=== PATIENT | male | born 1950 | race Caucasian/White ===

== ENCOUNTER 2017-07-28 07:59 | Outpatient (CLI) | payer MEDICARE, OTHER ==
[~2017-07-28] VITALS: Ht 180.3 cm; Wt 91.8 kg
--- NOTE | ~2017-07-28 | OP ---
PATIENT NAME: ANGELIC COULTER MEDICAL RECORD: [id number] :52 LOCATION:D.CAT ADMISSION DATE: SURGEON: LEN LEBRON MD DATE OF OPERATION: 07/28/2017 Addendum Intravascular ultrasound was performed of the LAD. No flow-limiting stenosis was present. TRANSINT:[id number] Voice Confirmation ID: [id number] DOCUMENT ID: [id number] LEN LEBRON MD at 0847 CC: [id number] DICTATION DATE: 08/31/17 1237 COOK ROOM SUPERVISOR: 08/31/17 1242 DEP CLI 07/28/17 [place] [id number] [place] [id number]
--- NOTE | ~2017-07-28 | HEMODYNAMI ---
PATIENT:ANGELIC COULTER MEDICAL RECORD: [id number] : 52 LOCATION:[facility] ADMISSION DATE: 07/28/17 Generatedon:07/28/201711:44 Patient name: ANGELIC COULTER Patient #: [id number] : 1950 Date of study: 07/28/2017 Page: Of Hemodynamic Procedure Report Patient Data Patient Demographics Procedure consent was obtained First Name: ANGELIC Gender: Male Last Name: FYN : 1950 [facility] Initial: TRESSA Age: 67 year(s) Patient #: [id number] Race: SSN: [id number] Additional ID: [id number] Contact details [address]: [address] [place] [address] State: [place] City: [place] Zip code: [address] Past Medical History Allergies Allergen Reaction Date Comments Reported Penicillins 06/20/2014 Other allergy 07/28/2017 PCN Admission Admission Data Admission Date: 07/28/2017 Admission Time: 7:59 Procedure Procedure Types Cath Procedure Diagnostic Procedure LHC LH w/Coronaries FFR/IVUS Intra-Coronary IVUS Initial Sedation Charges Moderate Sedation up to 15 minutes PCI Procedure Coronary Stent Coronary Stent Initial Procedure Description Procedure Date Procedure Date: 07/28/2017 Procedure Start Time: 11:24 Procedure End Time: 11:42 Procedure Staff Name Function Jeronimo Alcazar MD Performing Physician Sandra James RT Monitor Stefany Evangelista RT Scrub Dustin Arevalo RN Nurse Procedure Data Cath Procedure Fluoroscopy Diagnostic fluoroscopy Total fluoroscopy Time: 4.8 time: 4.8 min min Diagnostic fluoroscopy Total fluoroscopy dose: 860 dose: 860 mGy mGy Contrast Material Contrast Material Type Amount (ml) Isovue 300 119 Entry Location Entry Primary Successful Side Size Upsize Upsize Entry Closure Maloney ccessful Closure Location (Fr) 1 (Fr) 2 (Fr) Remarks Device Remarks Radial Right 6 Fr Mechanical artery Short Compression Estimated blood loss: 5 ml Diagnostic catheters Device Type Used For End Catheter Placement DIAGNOSTIC [place] 110cm 5 Multi-vessel Fr catheter ([id number]) Angiography DIAGNOSTIC AR 2 MOD 5 Fr Right Coronary catheter ([id number]) Angiography Procedure Complications No complications Procedure Medications Medication Administration Route Dosage Oxygen etCO2 Nasal cannula 2 l/min Heparin Flush Bag added to field 2 bags (1000units/500ml NS) 0.9% NaCl I.V. 100 ml/hr Radial Cocktail added to field 1 syringe (Verapomil 2mg/Nitro 400mcg/Heparin 1500units) Versed I.V. 1 mg Fentanyl I.V. 50 mcg Radial Cocktail I.A. 1 syringe (Verapomil 2mg/Nitro 400mcg/Heparin 1500units) Versed I.V. 1 mg Fentanyl I.V. 50 mcg Heparin Bolus I.V. 4000 units Hemodynamics Rest Heart Rate: 58 (bpm) Pressure Samples Time Site Value (mmHg) Purpose Heart Use Rate(bpm) 11:26 LV 72/17,6 Snapshot 71 Snapshots Pre Cath Intra NCS Post Cath Vital Signs Time Heart Resp SPO2 etCO2 NIBP (mmHg) Rhythm Pain Sedation Rate (ipm) (%) (mmHg) Status Level (bpm) 10:18:13 57 16 94 0 111/80(92) NSR 0 (11) 10(A) , No pain 10:22:23 62 16 95 0 118/72(91) NSR 0 (11) 10(A) , No pain 10:26:35 60 15 95 0 107/71(89) NSR 0 (11) 10(A) , No pain 10:30:40 62 16 96 0 115/78(98) NSR 0 (11) 10(A) , No pain 10:34:51 62 17 96 0 109/76(95) NSR 0 (11) 10(A) , No pain 10:38:56 61 15 95 0 121/79(92) NSR 0 (11) 10(A) , No pain 10:43:04 58 16 96 0 116/83(92) NSR 0 (11) 10(A) , No pain 10:47:12 61 18 97 19.5 127/80(88) NSR 0 (11) 10(A) , No pain 10:51:24 63 14 97 16.5 123/80(98) NSR 0 (11) 10(A) , No pain 10:55:34 62 17 96 15.7 117/82(103) NSR 0 (11) 10(A) , No pain 10:59:40 62 10 97 12 129/88(99) NSR 0 (11) 10(A) , No pain 11:03:51 59 15 85 28.5 145/81(96) NSR 0 (11) 10(A) , No pain 11:07:59 56 16 87 0 124/85(101) NSR 0 (11) 10(A) , No pain 11:12:09 54 20 93 0 132/83(96) NSR 0 (11) 10(A) , No pain 11:16:21 55 14 94 0 121/86(96) NSR 0 (11) 10(A) , No pain 11:20:31 58 17 93 0 130/82(94) NSR 0 (11) 10(A) , No pain 11:24:43 58 16 95 0 127/83(93) NSR 0 (11) 9(A) , No pain 11:28:55 71 17 92 0 100/64(79) NSR 0 (11) 9(A) , No pain 11:32:58 70 19 91 1.5 113/72(87) NSR 0 (11) 9(A) , No pain 11:37:10 71 16 92 26.2 108/68(83) NSR 0 (11) 10(A) , No pain 11:41:20 69 12 94 32.2 109/65(88) NSR 0 (11) 10(A) , No pain Medications Time Medication Route Dose Verified Delivered Reason Not es Effectiveness by by 10:43:43 Oxygen etCO2 2 l/min Jeronimo Dustin Per physician Nasal Inge Arevalo cannula RN 10:43:51 Heparin Flush added 2 bags Jeronimo Dustin used for Bag to Inge Arevalo procedure (1000units/500ml RN NS) 10:44:01 0.9% NaCl I.V. 100 Jeronimo Dustin Per physician ml/hr Inge Arevalo RN 10:44:18 Radial Cocktail added 1 Jeronimo Dustin used for (Verapomil to syringe Inge Arevalo procedure 2mg/Nitro field RN 400mcg/Heparin 1500units) 11:21:07 Versed I.V. 1 mg Jeronimo Jonas for sedation Inge Clark RN 11:21:15 Fentanyl I.V. 50 mcg Jeronimo Jonas for sedation Inge Clark RN 11:25:22 Radial Cocktail I.A. 1 Jeronimo Decker for (Verapomil syringe Inge Alcazar MD vasodilation 2mg/Nitro 400mcg/Heparin 1500units) 11:26:11 Versed I.V. 1 mg Jeronimo Chan for sedation Inge Arevalo RN 11:26:17 Fentanyl I.V. 50 mcg Jeronimo Chan for sedation Inge Arevalo RN 11:34:36 Heparin Bolus I.V. 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 Start room use. 9:55:15 Time tracking: Regular hours (M-F 7:00 - 5:00) 9:55:19 Plan of Care:Hemodynamics will remain stable., Cardiac rhythm will remain stable., Comfort level will be maintained., Respiratory function will remain adequate., Patient/ family verbilizes understanding of procedure., Procedure tolerated without complication., Recovers from procedure without complications.. 9:55:34 Informed consent obtained and on chart 10:04:44 Patient received from Pre/Post Procedure Room to CCL 2 Alert and oriented. Tansferred to table in Supine position. 10:04:45 Warm blankets applied, and kike hugger turned on for patient comfort. 10:04:45 Correct patient and procedure confirmed by team. 10:04:46 ECG and BP/O2 sat monitors applied to patient. 10:17:12 Vital chart was started 10:17:13 Baseline sample Acquired. 10:17:18 Rhythm: sinus rhythm 10:17:20 Full Disclosure recording started 10:17:35 H&P Date Dictated: 07/06/2017 Within 30 days and on chart., H&P Addendum completed by physician on day of procedure. (MUST COMPLETE FOR ALL OUTPATIENTS). 10:17:37 Pre-procedure instructions explained to patient. 10:17:39 Family in waiting room. 10:17:40 Patient NPO since Midnight. 10:17:54 Patient allergic to Other allergyPCN 10:17:57 Is the patient allergic to Iodine/contrast media? No. 10:17:59 Was the patient premedicated? Yes 10:18:01 Is patient on blood thinner?Yes 10:18:05 ACC The patient was administered the following blood thiners within the last 24 hours: ACCPlavix 10:18:09 Snore? Yes 10:18:11 Sleep apnea? No 10:18:16 Dentures? No ? 10:18:26 IV patent on arrival in left forearm with 0.9% NaCl at [facility]. 10:18:41 Lab results completed and on chart. 10:18:44 Right Radial & Right Groin area was prepped with chlora-prep and draped in sterile fashion 10:18:45 Alarms reviewed by R. N. 10:18:46 Sharps counted by scrub and verified by R.N. 10:18:48 Physician paged 10:43:43 Oxygen 2 l/min etCO2 Nasal cannula was administered by Dustin Arevalo RN; Per physician; 10:43:51 Heparin Flush Bag (1000units/500ml NS) 2 bags added to field was administered by Dustin Arevalo RN; used for procedure; 10:44:01 0.9% NaCl 100 ml/hr I.V. was administered by Dustin Arevalo RN; Per physician; 10:44:18 Radial Cocktail (Verapomil 2mg/Nitro 400mcg/Heparin 1500units) 1 syringe added to field was administered by Dustin Arevalo RN; used for procedure; 10:46:22 Zero performed for pressure channel P1 11:20:29 Physician arrived 11:20:30 --------ALL STOP TIME OUT------ 11:20:30 Final Timeout: patient, procedure, and site verified with staff and physician. All members of the team are in agreement. 11:20:33 Right Radial & Right Groin site verified by team. 11:20:35 Physical assessment completed. ASA score P 2 - A patient with mild systemic disease as per Jeronimo Alcazar MD. 11:20:40 Sedation plan: IV Moderate Sedation Medication:Versed, Fentanyl 11:21:00 Use device set Radial Dx or PCI 11:21:02 ACIST Syringe (91146) opened to sterile field. 11:21:02 Medline Cath Pack ([id number]) opened to sterile field. 11:21:02 Bag Decanter (2001S) opened to sterile field. 11:21:03 DIAGNOSTIC WIRE .035 260cm J wire (361461) opened to sterile field. 11:21:03 ACIST Hand Control (63897) opened to sterile field. 11:21:04 ACIST Manifold (88568) opened to sterile field. 11:21:04 Tegaderm 4 x 4 (1626W) opened to sterile field. 11:21:05 MBrace Wrist Support (772788761) opened to sterile field. 11:21:06 SHEATH 6Fr Prelude Radial ([id number]) opened to sterile field. 11:21:07 Versed 1 mg I.V. was administered by Pritesh Clark RN; for sedation; 11::15 Fentanyl 50 mcg I.V. was administered by Pritesh Clark RN; for sedation; 11:24:26 Procedure started. 11:24:30 Local anesthetic to right radial artery with Lidocaine 2% by Jeronimo Alcazar MD.INITIAL ACCESS ONLY 11:24:51 A 6 Fr Short sheath was inserted into the Right Radial artery 11:25:07 A DIAGNOSTIC [place] 110cm 5 Fr catheter (276612) was advanced over the wire and used for Multi-vessel Angiography. 11:25:22 Radial Cocktail (Verapomil 2mg/Nitro 400mcg/Heparin 1500units) 1 syringe I.A. was administered by Jeronimo Alcazar MD; for vasodilation; 11:26:11 Versed 1 mg I.V. was administered by Dustin Arevalo RN; for sedation; 11:26:17 Fentanyl 50 mcg I.V. was administered by Dustin Arevalo RN; for sedation; 11:26:45 LV hemodynamics recorded. 11:26:48 LV gram done using HERNANDEZ 11::51 Injector settings: Ml/sec: 5, Volume: 15, 11:26:59 EF : 60 % 11:27:45 Catheter removed. 11:28:43 GUIDE 6FR XBLAD 3.5 catheter (82725985) opened to sterile field. 11:29:10 A DIAGNOSTIC AR 2 MOD 5 Fr catheter (618571A) was advanced over the wire and used for Right Coronary Angiography. 11:29:21 RCA angiography performed. 11:29:25 Injector settings: Ml/sec: 3, Volume: 6, 11:29:55 Catheter removed. 11:30:06 6 Fr xblad 3.5 guide catheter was inserted over the wire 11:32:05 LCA angiography performed. 11:32:12 Injector settings: Ml/sec: 3, Volume: 6, 11:33:21 INFLATOR Merit BasixCompak (GC4233) opened to sterile field. 11:33:22 CHOICE PT Extra Support 182cm wire (2096769X1) opened to sterile field. 11:33:42 Reading [place]ag[place] IVUS Catheter (45802R) opened to sterile field. 11:34:33 choice pt wire advanced. 11:34:36 Heparin Bolus 4000 units I.V. was administered by Dustin Arevalo RN; for anticoagulation; 11:34:58 IVUS catheter advanced over wire. 11:35:03 IVUS pass to LAD lesion performed. 11:35:46 IVUS catheter removed over wire. 11:36:43 Wire redirected to lcx. 11:39:05 Place stent Inflation Number: 1 A INTEGRITY RX 3.5 x 12 stent ([id number]) was prepped and advanced across the Mid CX. The stent was deployed at 17 YOSI for 0:10 (min:sec). 11:40:29 Stent catheter was removed intact over wire. 11:40:29 Wire removed. 11:40:30 Guide catheter removed. 11:40:32 TR BAND Standard ([id number]) opened to sterile field. 11:40:43 Sheath removed intact; hemostasis achieved with Mechanical Compression to the Right Radial artery. 11:40:45 Procedure ended.(Physican Out) 11:40:54 Fluoroscopy time 04.80 minutes. 11:40:59 Flurop Dose total: 860 11:40:59 Fluoroscopy dose: 860 mGy 11:41:03 Contrast amount:Isovue 300 119ml. 11:42:01 Sharps counted by scrub and verified by R.N. 11:42:03 TR band inflated with 10cc of air. 11:42:07 Insertion/operative site no bleeding no hematoma. 11:42:18 Post right radial artery:stable 11:42:20 Post Procedure Pulses reassessed and unchanged 11:42:22 Post procedure rhythm: unchanged. 11:42:25 Estimated blood loss: 5 ml 11:42:26 Post procedure instruction explained to patient.Patient verbalizes understanding. 11:42:26 Patient needs reinforcement of post procedure teaching. 11:42:44 Procedure type changed to Cath procedure, Diagnostic procedure, LHC, LHC w/Coronaries, FFR/IVUS, Intra-Coronary IVUS Initial, Sedation Charges, Moderate Sedation up to 15 minutes, PCI procedure, Coronary Stent, Coronary Stent Initial 11:42:45 Procedure and supply charges have been captured, reviewed, submitted and are correct. 11:42:49 Procedure Complication : No complications 11:42:51 Vital chart was stopped 11:42:51 See physician's report for complete and final results. 11:42:53 Report given to Pre/Post Procedure Room. 11:42:56 Patient transfered to Pre/Post Procedure Room with Stretcher. 11:42:58 Procedure ended. 11:42:58 Full Disclosure recording stopped 11:43:06 ACC-PCI Only Patient was given prescriptions, or instructed by Jeronimo Alcazar MD to start/continue the following medications upon discharge: Plavix 11:43:08 End room use (Document Last) Intervention Summary Intervention Notes Time ActionType Lesion and Equipment Action# Pressure Duration Attributes Used 11:39:05 Place stent Mid CX INTEGRITY RX 1 17 00:10 3.5 x 12 stent ([id number]) Device Usage Item Name Manufacture Quantity Catalog Number Hospital Part Current M inimal Lot# / Charge Number Stock Stock Serial# Code ACIST Syringe Acist 1 07966 537030 679770 650419 2 0 (76248) Medical Systems Inc Medline Cath Cardinal 1 [id number] 627117 89987 944916 5 Pack Health ([id number]) Bag Decanter Microtek 1 735125 66747 369972 5 () Medical Inc. DIAGNOSTIC WIRE [place] 1 800446 876013 227054 690323 3 0 .035 260cm J wire (803763) ACIST Hand Acist 1 21695 007205 370017 359727 5 Control (63564) Medical Systems Inc ACIST Manifold Acist 1 17210 827080 473613 704814 5 (72021) Medical Systems Inc Tegaderm 4 x 4 3M 1 1626W 836021 620829 302915 5 (1626W) MBrace Wrist Advanced 1 140-0250-00 912192 08976 292379 5 Support Vascular ([id number]) Dynamics SHEATH 6Fr Merit 1 [id number] 962132 689411 774773 5 Prelude Radial Medical ([id number]) DIAGNOSTIC Terumo 1 40-7631 879959 450559 108208 5 [place] 110cm 5 Fr catheter (993145) GUIDE 6FR XBLAD Cardinal 1 [id number] 304976 089817 752149 1 0 3.5 catheter Health (52480874) DIAGNOSTIC AR 2 Cardinal 1 [id number] 464713 312772 738576 2 0 MOD 5 Fr Health catheter (461141L) INFLATOR Merit Merit 1 LK7822 819216 678842 809640 1 5 NuxeoiaCrossChx Medical (SW7909) CHOICE PT Extra [place] 1 [id number] 148441 285184 387770 5 Support 182cm Scientific wire (8042695N3) Reading Reading 1 39856Z 411191 411015 150142 8 [place] IVUS Catheter (73678P) INTEGRITY RX Medtronic 1 [id number] 884604 116615 908483 5 [id number] 3.5 x 12 stent ([id number]) TR BAND Terumo 1 [id number] 195903 218514 916286 4 0 Standard ([id number]) Signature Audit [place] Stage Time Signature Unsigned Intra-Procedure 07/28/2017 Sandra James 11:44:06 AM RT(R) Signatures Monitor : Sandra James RT Signature : Date : Time : [facility] [address], [place] [address]
--- NOTE | ~2017-07-28 | OP ---
PATIENT NAME: ANGELIC COULTER MEDICAL RECORD: [id number] :52 LOCATION:D.CAT ADMISSION DATE: SURGEON: LEN LEBRON MD DATE OF OPERATION: 07/28/2017 PROCEDURES: 1. PTCA stent left circumflex. 2. Left heart catheterization. 3. Selective coronary angiography. 4. Left ventriculogram. INDICATION: Angina and coronary artery disease. PROCEDURE IN DETAIL: After informed consent was obtained and after a detailed explanation of the risks, benefits as well as alternative therapies, the patient elected to proceed with angiogram and angioplasty. The right femoral area was prepped and draped in normal sterile fashion. Right femoral artery was cannulated via modified Seldinger technique with placement of 6-Jordanian sheath. All catheters exchanged through this sheath. FINDINGS: The left ventriculogram was performed in a standard 30-degree HERNANDEZ view, reveals good cardiac wall motion throughout all segments. Overall ejection fraction estimated 60%. SELECTIVE CORONARY ANGIOGRAPHY: 1. Left main has no significant angiographic disease. 2. Left anterior descending has moderate irregularities, but no flow-limiting stenosis. 3. The left circumflex has moderate irregularities; however, there is an area of 70% to 80% stenosis in the mid vessel. 4. Right coronary has moderate irregularities, but no flow-limiting stenosis. PTCA STENT OF THE LEFT CIRCUMFLEX: The stent used is a 3.5 x 12 mm Integrity stent. Result was 0% residual stenosis. OVERALL IMPRESSION: Successful percutaneous transluminal coronary angioplasty stent of the left circumflex going from 70% to 80% initial stenosis to 0% residual stenosis. TRANSINT:[id number] Voice Confirmation ID: [id number] DOCUMENT ID: [id number] LEN ELBRON MD at 1730 CC: [id number] DICTATION DATE: 08/04/17 1331 FLOAT OPERATOR: 08/04/17 1402 DEP CLI 07/28/17 [place] [id number] [place] [id number]
[~2017-07-28 07:59] MED LIST: BAYER CHEWABLE81 MG PO; GLUCOPHAGE1000 MG PO; PLAVIX75 MG PO; PRAVACHOL40 MG PO; PRINIVIL20 MG PO; TOPROL XL50 MG PO
[2017-07-28] MEDS ORDERED: GLIMEPIRIDE4 MG PO (08:36)
[2017-07-28 08:48] VITALS: BP 144/87; Ht 180.3 cm; Wt 91.8 kg
[2017-07-28 08:58] LABS: BASOPHILS 0.4 % (0-2); EOSINOPHILS 3.2 % (0-7); HEMATOCRIT 45.9 % (42.0-54.0); IMMATURE GRANULOCYTES 0.2 % (0-5); LYMPHOCYTES 16.6 % (15-50); MCH 29.2 pg (26.0-34.0); MCHC 34.9 g/dL (31.0-37.0); MCV 83.8 fL (80.0-100.0); MEAN PLATELET VOLUME 9.3 fL (7.4-10.4); MONOCYTES 10.8 % (2-11); NEUTROPHILS 68.8 % (40-80); PLATELET COUNT 145 10x3/uL (130-400); RBC 5.48 10x6/uL (4.20-6.10); WBC 5.4 10x3/uL (4.8-10.8)
[2017-07-28 09:14] LABS: CALC OSMOLALITY 279 mosm/kg (275-300); CALCIUM 9.3 mg/dL (8.5-10.1); CARBON DIOXIDE 22.7 mmol/L (21.0-32.0); CHLORIDE - SERUM 102 mmol/L (98-107); GLUCOSE 170 mg/dL (74-106); POTASSIUM - SERUM 3.9 mmol/L (3.5-5.1); SODIUM 138 mmol/L (136-145); UREA NITROGEN 12 mg/dL (7-18); eGFR NON AFRICAN AMERICAN 79 mL/min (90-120)
== END 2017-07-28 16:05 | disposition home or self-care (01) ==
LOC: D.CATH 07:59
PROVIDERS: Internal Medicine Interventional Cardiology
DX: I25.119 Atherosclerotic heart disease of native coronary artery with unspecified angina pectoris (principal); Z01.812 Encounter for preprocedural laboratory examination

== ENCOUNTER 2017-11-24 07:54 | Emergency (ER) | payer MEDICARE, OTHER ==
[~2017-11-24] VITALS: Ht 180.3 cm; Wt 89.7 kg
[~2017-11-24 07:54] MED LIST changes: +GLIMEPIRIDE4 MG PO
[2017-11-24 07:56] VITALS: Ht 180.3 cm; Wt 89.7 kg
[2017-11-24] MEDS ORDERED: LIPITOR40 MG PO (07:58)
[2017-11-24] MEDS ORDERED: JANUVIA100 MG PO (07:59)
[2017-11-24 08:36] LABS: BASOPHILS 0.3 % (0-2); EOSINOPHILS 2.6 % (0-7); HEMATOCRIT 43.7 % (42.0-54.0); HEMOGLOBIN 14.7 g/dL (13.5-17.5); IMMATURE GRANULOCYTES 0.2 % (0-5); LYMPHOCYTES 14.4 % (15-50); MCH 27.9 pg (26.0-34.0); MCHC 33.6 g/dL (31.0-37.0); MCV 82.9 fL (80.0-100.0); MEAN PLATELET VOLUME 9.2 fL (7.4-10.4); MONOCYTES 8.7 % (2-11); NEUTROPHILS 73.8 % (40-80); PLATELET COUNT 132 10x3/uL (130-400); RBC 5.27 10x6/uL (4.20-6.10); WBC 6.6 10x3/uL (4.8-10.8)
[2017-11-24 08:51] LABS: ALBUMIN 3.4 g/dL (3.4-5.0); ALKALINE PHOSPHATASE 78 U/L (46-116); ALT (SGPT) 16 U/L (10-68); BILIRUBIN - TOTAL 0.82 mg/dL (0.2-1.3); CALC OSMOLALITY 282 mosm/kg (275-300); CALCIUM 8.2 mg/dL (8.5-10.1); CARBON DIOXIDE 28.3 mmol/L (21.0-32.0); CHLORIDE - SERUM 105 mmol/L (98-107); CREATININE - SERUM 1.2 mg/dL (0.6-1.3); GLUCOSE 176 mg/dL (74-106); POTASSIUM - SERUM 4.3 mmol/L (3.5-5.1); PROTEIN - SERUM 6.6 g/dL (6.4-8.2); SODIUM 139 mmol/L (136-145); UREA NITROGEN 16 mg/dL (7-18); eGFR NON AFRICAN AMERICAN 64 mL/min (90-120)
[2017-11-24 08:54] LABS: APTT 26.5 SECONDS (22.8-39.4); INR 1.03 (0.85-1.17); PROTIME 13.1 SECONDS (11.6-15.0)
[2017-11-24 09:01] LABS: CKMB 0.8 U/L (0.0-3.6); CREATINE KINASE 60 UL (21-232); MAGNESIUM - SERUM 1.5 mg/dL (1.8-2.4)
[2017-11-24 09:02] LABS: TROPONIN-I < 0.017 ng/mL (0.000-0.060)
[2017-11-24 09:53] VITALS: BP 103/72
== END 2017-11-24 09:53 | disposition home or self-care (01) ==
LOC: D.ER 07:54
PROVIDERS: Emergency Medicine
DX: I47.1 Supraventricular tachycardia (principal); E83.51 Hypocalcemia; E83.42 Hypomagnesemia; E11.9 Type 2 diabetes mellitus without complications; I10 Essential (primary) hypertension

== ENCOUNTER 2018-07-03 13:56 | Observation (INO) | payer MEDICARE, OTHER ==
[~2018-07-03] VITALS: Ht 181.6 cm; Wt 92.8 kg
--- NOTE | ~2018-07-03 | HEMODYNAMI ---
PATIENT:ANGELIC COULTER MEDICAL RECORD: [id number] : 52 [id number] ADMISSION DATE: 07/03/18 Generatedon:07/04/201817:09 Patient name: ANGELIC COULTER Patient #: [id number] : 1950 Date of study: 07/04/2018 Page: Of Hemodynamic Procedure Report Patient Data Patient Demographics Procedure consent was obtained First Name: ANGELIC Gender: Male Last Name: YFN : 1950 [facility] Initial: TRESSA Age: 68 year(s) Patient #: [id number] Race: SSN: [id number] Additional ID: [id number] Contact details [address]: [address] [place] [address] State: [place] City: [place] Zip code: [address] Past Medical History Allergies Allergen Reaction Date Comments Reported Penicillins 06/20/2014 Other allergy 07/28/2017 PCN Penicillins 07/04/2018 Admission Admission Data Admission Date: 07/03/2018 Admission Time: 16:25 Room #: D.2124 Lab Results Lab Result Date: 07/04/2018 Lab Result Time: 0:00 Biochemistry Name Units Result Min Max BUN mg/dl 18 --(---*)-- 7 18 Creatinine mg/dl 0.9 --(-*--)-- 0.6 1.3 CBC Name Units Result Min Max Hematocrit % 43.1 --(*---)-- 42 54 Hemoglobin g/dl 14.2 --(*---)-- 13.5 17.5 Procedure Procedure Types Cath Procedure Diagnostic Procedure LHC C w/Coronaries Procedure Description Procedure Date Procedure Date: 07/04/2018 Procedure Start Time: 16:56 Procedure End Time: 17:07 Procedure Staff Name Function Devin Ford MD Performing Physician Pritesh Clark RN Nurse Dustin Arevalo RN Nurse Blanco Díaz RT Monitor Sandra James RT Scrub Procedure Data Cath Procedure Fluoroscopy Diagnostic fluoroscopy Total fluoroscopy Time: 2.6 time: 2.6 min min Diagnostic fluoroscopy Total fluoroscopy dose: 515 dose: 515 mGy mGy Contrast Material Contrast Material Type Amount (ml) Isovue 300 53 Entry Location Entry Primary Successful Side Size Upsize Upsize Entry Closure Maloney ccessful Closure Location (Fr) 1 (Fr) 2 (Fr) Remarks Device Remarks Radial Right 6 Fr Mechanical artery Short Compression Estimated blood loss: 5 ml Diagnostic catheters Device Type Used For End Catheter Placement DIAGNOSTIC Embudo 110cm 5 Procedure Fr catheter ([id number]) DIAGNOSTIC JL 3.5 5Fr Procedure catheter ([id number]) Procedure Complications No complications Procedure Medications Medication Administration Route Dosage 0.9% NaCl I.V. 100 ml/hr Oxygen etCO2 Nasal cannula 2 l/min Heparin Flush Bag added to field 2 bags (1000units/500ml NS) Lidocaine 2% added to field 20 Radial Cocktail added to field 1 syringe (Verapomil 2mg/Nitro 400mcg/Heparin 1500units) Versed I.V. 1 mg Fentanyl I.V. 50 mcg Versed I.V. 1 mg Radial Cocktail I.A. 1 syringe (Verapomil 2mg/Nitro 400mcg/Heparin 1500units) Hemodynamics Rest HGB: 14.2 (g/dl) Heart Rate: 61 (bpm) Pressure Samples Time Site Value (mmHg) Purpose Heart Use Rate(bpm) 16:58 LV 98/7,8 Snapshot 78 Gradients Valve Time Site Site Mean SEP/DFP Peak To Heart Use 1 2 (mmHg) (sec/min) Peak Rate (mmHg) (bpm) Aortic 16:58 LV AO 73 Snapshots Pre Cath Intra NCS Post Cath Vital Signs Time Heart Resp SPO2 etCO2 NIBP Rhythm Pain Sedation Rate (ipm) (%) (mmHg) (mmHg) Status Level (bpm) 16:49:26 58 16 96 0 114/82(93) NSR 0 (11) 10(A) , No pain 16:53:32 62 19 94 0 108/76(89) NSR 0 (11) 10(A) , No pain 16:57:33 67 17 96 29.3 112/79(95) NSR 0 (11) 10(A) , No pain 17:01:41 78 17 92 0 103/63(90) NSR 0 (11) 9(A) , No pain 17:05:43 74 11 94 9.7 108/71(84) NSR 0 (11) 9(A) , No pain Medications Time Medication Route Dose Verified Delivered Reason Notes Effectiveness by by 16:47:45 0.9% NaCl I.V. 100 Dustin Dustin Per ml/hr Irina Arevalo physician RN RN 16:47:56 Oxygen etCO2 2 l/min Dustin Dustin for low 02 Nasal Lorigan Irina sats cannula RN RN 16:48:04 Heparin Flush added 2 bags Dustin Dustin used for Bag to Lorigan Lorigan procedure (1000units/500ml field RN RN NS) 16:48:13 Lidocaine 2% added 20ml Dustin Dustin for local to vial Lorigan Lorigan anesthetic field RN RN 16:48:25 Radial Cocktail added 1 Dustin Dustin used for (Verapomil to syringe Lorigan Lorigan procedure 2mg/Nitro field RN RN 400mcg/Heparin 1500units) 16:55:20 Versed I.V. 1 mg Dustin Dustin for sedation Irina Arevalo RN RN 16:55:28 Fentanyl I.V. 50 mcg Dustin Dustin for sedation Irina Arevalo RN RN 16:56:42 Versed I.V. 1 mg Dustin Dustin for sedation Irina Arevalo RN RN 16:57:33 Radial Cocktail I.A. 1 Dustin Devin for (Verapomil syringe Lorigan Liliana vasodilation 2mg/Nitro RN 400mcg/Heparin 1500units) Procedure Log Time Note 16:32:21 Pritesh Clark RN sent for patient. Start room use. 16:32:22 Signed procedure consent form obtained from patient. 16:32:23 Diagnostic Cath status Elective 16:32:24 Time tracking: Regular hours (M-F 7:00 - 5:00) 16:32:28 Plan of Care:Hemodynamics will remain stable., Cardiac rhythm will remain stable., Comfort level will be maintained., Respiratory function will remain adequate., Patient/ family verbilizes understanding of procedure., Procedure tolerated without complication., Recovers from procedure without complications.. 16:33:16 Patient allergic to Penicillins 16:34:07 Lab Result : BUN 18 mg/dl 16:34:07 Lab Result : Creatinine 0.9 mg/dl 16:34:07 Lab Result : Hemoglobin 14.2 g/dl 16:34:07 Lab Result : Hematocrit 43.1 % 16:39:26 Patient received from Med II to CCL 2 Alert and oriented. Tansferred to table in Supine position. 16:39:27 Warm blankets applied, and kike hugger turned on for patient comfort. 16:39:27 Correct patient and procedure confirmed by team. 16:39:28 ECG and BP/O2 sat monitors applied to patient. 16:47:45 0.9% NaCl 100 ml/hr I.V. was administered by Dustin Arevalo RN; Per physician; 16:47:56 Oxygen 2 l/min etCO2 Nasal cannula was administered by Dustin Arevalo RN; for low 02 sats; 16:48:04 Heparin Flush Bag (1000units/500ml NS) 2 bags added to field was administered by Dustin Arevalo RN; used for procedure; 16:48:13 Lidocaine 2% 20ml vial added to field was administered by Dustin Arevalo RN; for local anesthetic; 16:48:22 Vital chart was started 16:48:25 Radial Cocktail (Verapomil 2mg/Nitro 400mcg/Heparin 1500units) 1 syringe added to field was administered by Dustin Arevalo RN; used for procedure; 16:48:25 Baseline sample Acquired. 16:48:28 Rhythm: sinus rhythm 16:48:29 Full Disclosure recording started 16:49:01 H&P Date Dictated: 07/03/2018 Within 30 days and on chart.. 16:49:04 Pre-procedure instructions explained to patient. 16:49:04 Pre-op teaching completed and patient verbalized understanding. 16:49:06 Family unavailable. 16:49:08 Patient NPO since Breakfast. 16:49:25 Is the patient allergic to Iodine/contrast media? No. 16:49:26 Is patient on blood thinner?No 16:49:27 Patient diabetic? Yes. 16:49:28 If diabetic: On Metformin? Yes 16:49:30 If on Metformin: Last Dose? 07/03/2018 16:49:59 Previous problem with sedation/anesthesia? No ? 16:50:00 Snore? Yes 16:50:01 Sleep apnea? No 16:50:02 Deviated septum? No 16:50:03 Opens mouth fully? Yes 16:50:04 Sticks out tongue? Yes 16:50:05 Airway obstruction? No ? 16:50:06 Dentures? No ? 16:50:11 Modified Armand's test Ulnar < 7 seconds 16:50:12 Patient pain scale 0/10 ?. 16:50:19 IV patent on arrival in left forearm with 0.9% NaCl at [facility]. 16:50:21 Lab results completed and on chart. 16:50:24 Right Radial & Right Groin area was prepped with chlora-prep and draped in sterile fashion 16:50:25 Alarms reviewed by R. N. 16:50:25 Sharps counted by scrub and verified by R.N. 16:50:27 Use device set Radial Dx or PCI 16:50:28 ACIST Syringe (92151) opened to sterile field. 16:50:28 Medline Cath Pack ([id number]) opened to sterile field. 16:50:29 Bag Decanter (2002S) opened to sterile field. 16:50:30 ACIST Hand Control (39469) opened to sterile field. 16:50:30 ACIST Manifold (30270) opened to sterile field. 16:50:30 Tegaderm 4 x 4 (1626W) opened to sterile field. 16:50:31 MBrace Wrist Support ([id number]) opened to sterile field. 16:50:32 DIAGNOSTIC WIRE .035 260cm J wire (149811) opened to sterile field. 16:50:32 SHEATH 6FR Slender (03-9452) opened to sterile field. 16:50:39 Physician arrived 16:50:40 --------ALL STOP TIME OUT------ 16:50:40 Final Timeout: patient, procedure, and site verified with staff and physician. All members of the team are in agreement. 16:50:42 Right Radial & Right Groin site verified by team. 16:50:44 Maximum allowable Isovue 300 dose 3ml. Physician notified. (300ml for normal creatinines. For patients with creatinine of 1.7 or higher multiply weight(kg) x 5 divided by creatinine.) 16:50:55 Fire Safety Assessment: A--An alcohol-based skin anteseptic being used preoperatively., C--Open oxygen or nitrous oxide is being used., D--An ESU, laser, or fiber-optic light is being used. 16:50:57 Physical assessment completed. ASA score P 2 - A patient with mild systemic disease as per Devin Ford MD. 16:50:59 Sedation plan: IV Moderate Sedation Medication:Versed, Fentanyl 16:53:59 Zero performed for pressure channel P1 16:55:20 Versed 1 mg I.V. was administered by Dustin Arevalo RN; for sedation; 16:55:28 Fentanyl 50 mcg I.V. was administered by Dustin Arevalo RN; for sedation; 16:56:00 Procedure started. 16:56:06 Local anesthetic to right radial artery with Lidocaine 2% by Devin Ford MD.INITIAL ACCESS ONLY 16:56:13 A 6 Fr Short sheath was inserted into the Right Radial artery 16:56:42 Versed 1 mg I.V. was administered by Dustin Arevalo RN; for sedation; 16:57:06 A DIAGNOSTIC Embudo 110cm 5 Fr catheter ([id number]) was advanced over the wire and used for Procedure. 16:57:33 Radial Cocktail (Verapomil 2mg/Nitro 400mcg/Heparin 1500units) 1 syringe I.A. was administered by Devin Ford MD; for vasodilation; 16:58:23 LV gram done using HERNANDEZ 16:58:26 Injector settings: Ml/sec: 5, Volume: 15, 16:58:30 LV hemodynamics recorded. 16:58:33 EF : 55 % 16:59:44 RCA angiography performed. 17:00:25 Catheter exchanged over wire. 17:00:40 A DIAGNOSTIC JL 3.5 5Fr catheter ([id number]) was advanced over the wire and used for Procedure. 17:02:21 LCA angiography performed. 17:03:54 Catheter removed. 17:04:19 Sheath removed intact; hemostasis achieved with Mechanical Compression to the Right Radial artery. 17:04:20 Procedure ended.(Physican Out) 17:04:50 Fluoroscopy time 02.60 minutes. 17:04:54 Fluoroscopy dose: 515 mGy 17:04:54 Flurop Dose total: 515 17:04:57 Contrast amount:Isovue 300 53ml. 17:04:59 Sharps counted by scrub and verified by R.N. 17:05:01 TR band inflated with 13cc of air. 17:05:02 Insertion/operative site no bleeding no hematoma. 17:05:31 Post right radial artery:stable, soft, clean and dry 17:05:35 Post Procedure Pulses reassessed and unchanged 17:05:40 Post-procedure physical assessment completed. ASA score P 2 - A patient with mild systemic disease as per Devin Ford MD. 17:05:56 Post procedure rhythm: unchanged. 17:05:59 Estimated blood loss: 5 ml 17:06:00 Post procedure instruction explained to patient.Patient verbalizes understanding. 17:06:01 Patient needs reinforcement of post procedure teaching. 17:06:49 TR BAND Standard ([id number]) opened to sterile field. 17:07:00 Procedure and supply charges have been captured, reviewed, submitted and are correct. 17:07:02 Procedure Complication : No complications 17:07:06 Vital chart was stopped 17:07:08 See physician's report for complete and final results. 17:07:10 Report given to PCU. 17:07:12 Patient transfered to PCU with Stretcher. 17:07:14 Procedure ended. 17:07:14 Full Disclosure recording stopped 17:07:18 End room use (Document Last) Device Usage Item Name Manufacture Quantity Catalog Hospital Part Current Minimal Lot# / Number Charge Number Stock Stock Serial# Code ACIST Acist 1 86974 282512 870641 678201 20 Syringe Medical (08500) Systems Inc Medline Medline 1 [id number] 765810 25801 153766 5 Cath Pack ([id number]) Bag Microtek 1 2001S 744646 65594 346157 5 Decanter Medical Inc. () ACIST Hand Acist 1 71358 798689 691636 250251 5 Control Medical (48781) Systems Inc ACIST Acist 1 82353 375758 170581 130157 5 Manifold Medical (85971) Systems Inc Tegaderm 4 3M 1 1626W 997522 731582 282679 5 x 4 (1626W) MBrace Advanced 1 140-0250-00 097129 19889 562428 5 Wrist Vascular Support Dynamics ([id number]) DIAGNOSTIC [place] Alcon 1 483466 189089 317104 916504 30 WIRE .035 260cm J wire (735187) SHEATH 6FR Terumo 1 [id number] 665452 052611 582966 5 Slender (80-1060) DIAGNOSTIC Terumo 1 40-9209 161227 062017 373392 5 Embudo 110cm 5 Fr catheter (812028) DIAGNOSTIC Cardinal 1 [id number] 732520 492156 294161 5 JL 3.5 5Fr Health catheter (353639L) TR BAND Terumo 1 [id number] 887935 654849 739485 40 Standard ([id number]) Signature Audit [place] Stage Time Signature Unsigned Intra-Procedure 07/04/2018 Blanco Díaz 5:09:41 PM RT(R) Signatures Monitor : Blanco Díaz RT Signature : Date : Time : [address] [address]
[~2018-07-03 13:56] MED LIST changes: +JANUVIA100 MG PO; +LIPITOR40 MG PO
[2018-07-03 14:02] VITALS: Ht 181.6 cm; Wt 92.8 kg
[2018-07-03] MEDS ORDERED: LIPITOR40 MG PO (14:07)
[2018-07-03 14:35] LABS: BASOPHILS 0.2 % (0-2); EOSINOPHILS 2.4 % (0-7); HEMATOCRIT 46.2 % (42.0-54.0); HEMOGLOBIN 15.3 g/dL (13.5-17.5); IMMATURE GRANULOCYTES 0.2 % (0-5); LYMPHOCYTES 13.3 % (15-50); MCH 28.8 pg (26.0-34.0); MCHC 33.1 g/dL (31.0-37.0); MEAN PLATELET VOLUME 9.8 fL (7.4-10.4); MONOCYTES 10.4 % (2-11); NEUTROPHILS 73.5 % (40-80); RBC 5.31 10x6/uL (4.20-6.10); RDW 14.1 % (11.5-14.5); WBC 8.7 10x3/uL (4.8-10.8)
[2018-07-03 14:38] LABS: ALBUMIN 3.5 g/dL (3.4-5.0); ALKALINE PHOSPHATASE 84 U/L (46-116); ALT (SGPT) 27 U/L (10-68); BILIRUBIN - TOTAL 0.63 mg/dL (0.2-1.3); CALC OSMOLALITY 289 mosm/kg (275-300); CALCIUM 8.7 mg/dL (8.5-10.1); CARBON DIOXIDE 25.6 mmol/L (21.0-32.0); CHLORIDE - SERUM 102 mmol/L (98-107); CREATININE - SERUM 1.4 mg/dL (0.6-1.3); POTASSIUM - SERUM 5.4 mmol/L (3.5-5.1); PROTEIN - SERUM 6.8 g/dL (6.4-8.2); SODIUM 138 mmol/L (136-145); UREA NITROGEN 27 mg/dL (7-18); eGFR NON AFRICAN AMERICAN 54 mL/min (90-120)
[2018-07-03 14:39] LABS: INR 1.12 (0.85-1.17); PROTIME 13.9 SECONDS (11.6-15.0)
[2018-07-03 14:40] LABS: APTT 26.2 SECONDS (22.8-39.4); GLUCOSE 265 mg/dL (74-106)
[2018-07-03 14:41] LABS: PLATELET COUNT 168 10x3/uL (130-400)
[2018-07-03 14:54] LABS: CKMB 0.8 U/L (0.0-3.6); CREATINE KINASE 58 UL (21-232); MAGNESIUM - SERUM 1.9 mg/dL (1.8-2.4)
[2018-07-03 14:58] LABS: TROPONIN-I 0.108 ng/mL (0.000-0.060)
[2018-07-03] MEDS ORDERED: LISINOPRIL2.5 MG PO (18:04)
[2018-07-03] MEDS ORDERED: TOPROL XL50 MG (18:08)
--- NOTE | 2018-07-03 18:29 | NUR ---
RECIEVED FROM ER. ORIENTED AND ALERT. TELEMERTY SHOWS SR 84. UP AB SUMI. IV TO LEFT FOREARM, 18 LUCAS CATHERER. DENIES ANY NEEDS AT PRESENT TIME. WILL MONITOR
--- NOTE | 2018-07-03 19:19 | NUR ---
INTRODUCED SELF TO PATIENT, PATIENT HAS NO NEEDS AT THIS TIME. RESP EVEN AND UNLABORED.
[2018-07-04 00:30] VITALS: BP 105/62
--- NOTE | 2018-07-04 01:27 | NUR ---
RESTARTED NS, PATIENT STATES HAVING SOME TROUBLE SLEEPING WITH ALL THE NOISES/LIGHTS AROUND.
--- NOTE | 2018-07-04 02:21 | NUR ---
PATIENT RESTING QUIETLY, EYES CLOSED. RESP EVEN AND UNLABORED. NO NEEDS AT THIS TIME.
[2018-07-04 05:30] VITALS: BP 101/57
[2018-07-04 06:49] LABS: BASOPHILS 0.3 % (0-2); EOSINOPHILS 3.8 % (0-7); HEMATOCRIT 43.1 % (42.0-54.0); HEMOGLOBIN 14.2 g/dL (13.5-17.5); IMMATURE GRANULOCYTES 0.3 % (0-5); LYMPHOCYTES 32.9 % (15-50); MCHC 32.9 g/dL (31.0-37.0); MEAN PLATELET VOLUME 10.1 fL (7.4-10.4); MONOCYTES 11.7 % (2-11); PLATELET COUNT 161 10x3/uL (130-400); RBC 5.08 10x6/uL (4.20-6.10); WBC 6.9 10x3/uL (4.8-10.8)
[2018-07-04 06:52] LABS: MCV 84.8 fL (80.0-100.0)
[2018-07-04 07:12] LABS: ALBUMIN 3.3 g/dL (3.4-5.0); ALKALINE PHOSPHATASE 73 U/L (46-116); ALT (SGPT) 26 U/L (10-68); BILIRUBIN - TOTAL 0.66 mg/dL (0.2-1.3); CALCIUM 8.2 mg/dL (8.5-10.1); CHLORIDE - SERUM 107 mmol/L (98-107); PROTEIN - SERUM 6.5 g/dL (6.4-8.2); SODIUM 142 mmol/L (136-145)
[2018-07-04 07:13] LABS: CALC OSMOLALITY 284 mosm/kg (275-300); CREATININE - SERUM 0.9 mg/dL (0.6-1.3); GLUCOSE 104 mg/dL (74-106); POTASSIUM - SERUM 3.7 mmol/L (3.5-5.1); UREA NITROGEN 18 mg/dL (7-18); eGFR NON AFRICAN AMERICAN 89 mL/min (90-120)
--- NOTE | 2018-07-04 07:54 | NUR ---
REPORT RECEIVED. WILL CONTINUE WITH POC. PT CURRENTLY LYING SEMI FOWLERS. CALL LIGHT W/I REACH. PT IS AAO AND UP AD SUMI. RR EVEN AND UNLABORED ON 2L 02. NS INFUSING @125ML/HR VIA L.FOR PIV. PT DENIES ANY NEEDS AT THIS TIME. NO S/S OF DISTRESS NOTED. WILL CTM.
[2018-07-04 08:30] VITALS: BP 122/77
[2018-07-04 11:46] VITALS: BP 111/78
--- NOTE | 2018-07-04 14:51 | HP ---
PATIENT: ANGELIC COULTER MEDICAL RECORD: [id number] ACCOUNT: [id number] LOCATION:[address] : [birth year] ADMISSION DATE: 07/03/18 PCP: IRMA CUEVA MD HISTORY AND PHYSICAL EXAMINATION HISTORY: A 68-year-old gentleman with known history of coronary artery disease. He has history of SVT as well. He has had 3 episodes in the last 2 weeks, certainly accelerated from his usual SVT by his report. He has been under more stress, redoing taxes, involvement in denominational, etc. accompanied by some dyspnea and lightheadedness. He did not respond to vagal maneuvers at home, did break with adenosine. PAST MEDICAL HISTORY: Includes; 1. History of hypertension. 2. Hyperlipidemia. 3. SVT. 4. Coronary artery disease. ALLERGIES: PENICILLIN. MEDICATIONS: Typically, include atorvastatin 40 mg p.o. daily, lisinopril 20 daily, Toprol 50 daily, aspirin 81 daily, Amaryl 4 mg p.o. daily, Glucophage 1 gram b.i.d., and Januvia 100 mg p.o. daily. SOCIAL HISTORY: Nonsmoker. He takes care of all his ADLs. He does walk on a fairly regular basis. REVIEW OF SYSTEMS: The patient reports easy bruising but reports no swollen glands. The patient reports no fever, no night sweats, no significant weight gain, no significant weight loss. No significant exercise tolerance. The patient reports no dry eyes, no irritation, no vision change. Patient reports no difficulty hearing and no ear pain. Patient reports no frequent nose bleeds or nose and sinus problems. Patient reports on arm pain on exertion. No shortness of breath while lying down. No history of heart murmur. Patient reports no cough, no wheezing or coughing up blood. Patient reports no abdominal pain, no vomiting. Normal appetite. No diarrhea and not vomiting blood. No nausea and no constipation. Patient reports no incontinence. No difficulty urinating. No hematuria. No increased frequency. Patient reports no muscle aches. No weakness, no arthralgias, no back pain. No swelling of the extremities. Patient reports no abnormal mole, no jaundice, no rashes. Reports no loss of consciousness. No weakness and no numbness. No seizures, dizziness, or headaches. The patient reports no depression, no sleep disturbance, feeling safe in a relationship and no alcohol abuse. Patient reports on fatigue. Reports no runny nose or sinus pressure. No itching, no hives, and no frequent sneezing. PHYSICAL EXAMINATION: GENERAL: Pleasant gentleman, in no acute distress. VITAL SIGNS: Blood pressure 100/72. Pulse 81 and regular. HEENT: Normocephalic and atraumatic. NECK: No JVD or bruit. HEART: Regular. LUNGS: Good air movement. ABDOMEN: Soft and nontender. EXTREMITIES: Pulses 2+. No edema. HISTORY AND PHYSICAL [id number] ANGELIC COULTER NEUROLOGIC: Grossly intact. IMPRESSION: SVT, questionable acute coronary syndrome, typically more frequent breakthroughs as of late and elevated enzymes. We will plan for diagnostic angiography to ensure no ischemic focus. Further recommendations based on above. TRANSINT:[id number] Voice Confirmation ID: [id number] DOCUMENT ID: [id number] REI BUSTAMANTE MD at 1451 CC: [id number] DICTATION DATE: 07/03/18 170 BACKREST ASSEMBLER: 07/03/18 1823 ADM IN [facility] [address] [place] [address]
--- NOTE | 2018-07-04 14:53 | NUR ---
I have reviewed this patient and I concur with the Shift Assessment completed by the Licensed Practical Nurse today this shift.
[2018-07-04 15:47] VITALS: BP 116/75
--- NOTE | 2018-07-04 17:41 | NUR ---
PT RETURNED FROM PREPRESS OPERATOR. RIGHT RADIAL CATH SITE IS C/D/I WITH NO APPARENT S/S OF HEMATOMA PRESENT. PERIPHERAL PULSES STRONG AND EVEN BILATERALLY. PT IS UP EATING DINNER. PT IS AAO AND DENIES ANY NEEDS. NS INFUSING @200ML/HR VIA L.FOR PIV. RR EVEN AND UNLABORED. NO S/S OF DISTRESS NOTED. WILL CTM.
--- NOTE | 2018-07-04 19:54 | NUR ---
REMOVED AIR FROM TR BAND, BEEN REMOVING SINCE 1899 NO BLEEDING, PT VERBALIZED STEP TO TAKE IF BLEEDING OCCURS. REMOVED LEFT ARM PIV REMOVED TELEMETRY AND RETURNED TO BOILER MAKER. PT SIGNED DISCHARGE PAPERS. VERBALIZED UNDERSTANDING OF DISCHARGE INSTRUCTIONS. VERBALIZED UNDERSTANDING TO HOLD METFORMIN FOR 48HRS. PT DENIES ANY QUESTIONS OR CONCERNS. PT WHEELED OUT VIA WHEELCHAIR.
--- NOTE | 2018-07-05 13:38 | OP ---
PATIENT NAME: ANGELIC COULTER MEDICAL RECORD: [id number] :52 LOCATION:D.M2 D.2124 ADMISSION DATE:07/03/18 SURGEON: REI BUSTAMANTE MD DATE OF OPERATION: 07/04/2018 PROCEDURE: Left heart catheterization, selective coronary angiography, right femoral artery approach. CATHETERS: A 5-Algerian, 5/4 left and right David, 5/4 pig. The procedure was well tolerated. The patient was returned to the maldonado. Sheath was removed. TR band was placed. FINDINGS: Left ventriculography in 30-degree HERNANDEZ view: Normal wall motion. Normal systolic function. CORONARY ANATOMY: LEFT MAIN: Left main is free of disease. LAD: Ectatic vessel. Previously placed stent is widely patent. CIRCUMFLEX: Free of disease. RIGHT CORONARY ARTERY: Previously placed stent is widely patent. No progression of telida disease. IMPRESSION: Type 2 ischemia secondary to demand mismatch with SVT. TRANSINT:[id number] Voice Confirmation ID: [id number] DOCUMENT ID: [id number] REI BUSTAMANTE MD at 1338 CC: [id number] DICTATION DATE: 07/04/18 1713 MACHINE INSPECTOR: 07/04/18 1903 DIS IN 07/04/18 [facility] [address] [place] [address]
== END 2018-07-04 19:57 | disposition home or self-care (01) ==
LOC: D.ER 13:56 → D.EDHOLD 16:25 → OBSVTIME 16:26 → D.M2 17:22
PROVIDERS: Family Medicine; ADMIT Internal Medicine Interventional Cardiology; ATTEND Internal Medicine Interventional Cardiology
DX: I47.1 Supraventricular tachycardia (principal); I24.8 Other forms of acute ischemic heart disease; E78.5 Hyperlipidemia, unspecified; I10 Essential (primary) hypertension; I25.10 Atherosclerotic heart disease of native coronary artery without angina pectoris

== ENCOUNTER 2018-10-08 07:02 | Outpatient (CLI) | payer MEDICARE, OTHER ==
[2018-07-03 14:02] VITALS: Ht 181.6 cm; Wt 81.8 kg
[~2018-10-08] VITALS: Ht 181.6 cm; Wt 81.8 kg
--- NOTE | ~2018-10-08 | OP ---
PATIENT NAME: ANGELIC COULTER MEDICAL RECORD: [id number] :52 LOCATION:D.ER ADMISSION DATE: SURGEON: LEN LEBRON MD DATE OF OPERATION: 10/08/2018 PROCEDURES: 1. Left heart catheterization. 2. Selective coronary angiography. 3. Left ventriculogram. INDICATION: Unstable angina, supraventricular tachycardia, coronary artery disease. PROCEDURE IN DETAIL: After informed consent was obtained with detailed explanation of risks and benefits as well as alternative therapies, the patient elected to proceed with angiogram and heart catheterization. The right radial area was prepped and draped in normal sterile fashion. The right radial artery was cannulated via modified Seldinger technique with placement of 5-Ghanaian sheath. All catheters were exchanged through this sheath. FINDINGS: Left ventriculogram performed in standard 30-degree HERNANDEZ view reveals good cardiac wall motion throughout all segments. Overall ejection fraction is estimated at 50%. SELECTIVE CORONARY ANGIOGRAPHY: 1. Left main is with no significant angiographic disease. 2. Left anterior descending is ectatic and diffusely diseased, but no flow-limiting stenosis. 3. Left circumflex has previously placed stent in the ramus intermedius. First obtuse marginal is widely patent. Elsewise, the circumflex is large and ectatic but no significant disease. 4. Right coronary is very large, ectatic, diffusely diseased, but no flow-limiting stenosis. OVERALL IMPRESSION: Wide patency of the previously placed stent. Diffuse disease elsewise. Continue medical management of coronary artery disease and cardiac risk factors. TRANSINT:[id number] Voice Confirmation ID: [id number] DOCUMENT ID: [id number] LEN LEBRON MD CC: [id number] DICTATION DATE: 10/08/18 1232 INSTRUMENTATION DESIGNER: 10/08/18 1303 [facility] [address] [id number]
--- NOTE | ~2018-10-08 | HEMODYNAMI ---
PATIENT:ANGELIC COULTER MEDICAL RECORD: [id number] : 52 [id number] AD[facility]ION DATE: 10/08/18 Generatedon:10/08/201812:30 Patient name: ANGELIC COULTER Patient #: [id number] : 1950 Date of study: 10/08/2018 Page: Of Hemodynamic Procedure Report Patient Data Patient Demographics Procedure consent was obtained First Name: ANGELIC Gender: Male Last Name: YFN : 1950 [facility] Initial: TRESSA Age: 68 year(s) Patient #: [id number] Race: SSN: [id number] Additional ID: [id number] Contact details Address: [address] [place] [address] State: [place] City: [place] Zip code: [address] Past Medical History Allergies Allergen Reaction Date Comments Reported Penicillins 06/20/2014 Other allergy 07/28/2017 PCN Penicillins 07/04/2018 Penicillins 10/08/2018 Admission Admission Data Admission Date: 10/08/2018 Admission Time: 7:02 Lab Results Lab Result Date: 10/08/2018 Lab Result Time: 0:00 Biochemistry Name Units Result Min Max BUN mg/dl 26 --(----)-* 7 18 Creatinine mg/dl 1.3 --(---*)-- 0.6 1.3 eGFR ml/min 58 *-(----)-- 90 120 NONAFRICAN CBC Name Units Result Min Max Hematocrit % 47 --(-*--)-- 42 54 Hemoglobin g/dl 16.5 --(--*-)-- 13.5 17.5 Procedure Procedure Types Cath Procedure Diagnostic Procedure [facility] w/Coronaries Procedure Description Procedure Date Procedure Date: 10/08/2018 Procedure Start Time: 12:17 Procedure End Time: 12:27 Procedure Staff Name Function Jeronimo Alcazar MD Performing Physician Dorita Blake RT Monitor Dominic Gtz RT Scrub Dustin Arevalo RN Nurse Hola Adams RN Artist Scientific Procedure Data Cath Procedure Fluoroscopy Diagnostic fluoroscopy Total fluoroscopy Time: 1.6 time: 1.6 min min Diagnostic fluoroscopy Total fluoroscopy dose: 764 dose: 764 mGy mGy Contrast Material Contrast Material Type Amount (ml) Isovue 300 71 Entry Location Entry Primary Successful Side Size Upsize Upsize Entry Closure Maloney ccessful Closure Location (Fr) 1 (Fr) 2 (Fr) Remarks Device Remarks Radial Right 6 Fr Mechanical artery Short Compression Estimated blood loss: 10 ml Diagnostic catheters Device Type Used For End Catheter Placement DIAGNOSTIC [place] 110cm 5 Procedure Fr catheter ([id number]) Procedure Complications No complications Procedure Medications Medication Administration Route Dosage 0.9% NaCl I.V. 100 ml/hr Oxygen etCO2 Nasal cannula 2 l/min Heparin Flush Bag added to field 2 bags (1000units/500ml NS) Lidocaine 2% added to field 20 Radial Cocktail added to field 1 syringe (Verapamil 2mg/Nitro 400mcg/Heparin 1500units) Radial Cocktail I.A. 1 syringe (Verapamil 2mg/Nitro 400mcg/Heparin 1500units) Versed I.V. 2 mg Fentanyl I.V. 100 mcg Hemodynamics Rest HGB: 16.5 (g/dl) Heart Rate: 71 (bpm) Snapshots Pre Cath Intra NCS Post Cath Vital Signs Time Heart Resp SPO2 etCO2 NIBP Rhythm Pain Sedation Rate (ipm) (%) (mmHg) (mmHg) Status Level (bpm) 12:04:09 69 13 98 0 108/73(92) NSR 0 (11) 10(A) , No pain 12:08:23 69 16 96 16.4 95/70(78) NSR 0 (11) 10(A) , No pain 12:12:31 70 21 94 32.9 94/70(76) NSR 0 (11) 10(A) , No pain 12:16:41 68 15 95 1.4 97/68(81) NSR 0 (11) 9(A) , No pain 12:20:55 81 13 94 25.4 82/55(70) NSR 0 (11) 9(A) , No pain 12:25:03 75 10 94 15.7 87/56(69) NSR 0 (11) 10(A) , No pain Medications Time Medication Route Dose Verified Delivered Reason Notes Effectiveness by by 12:07:54 0.9% NaCl I.V. 100 Dustin Dustin Per ml/hr Irina Arevalo physician RN RN 12:08:04 Oxygen etCO2 2 l/min Dustin Dustin for low 02 Nasal Lorigan Irina sats cannula RN RN 12:08:17 Heparin Flush added 2 bags Dustin Dustin used for Bag to Irina Arevalo procedure (1000units/500ml field RN RN NS) 12:08:30 Lidocaine 2% added 20ml Dustin Dustin for local to vial Lorigan Irina anesthetic field RN RN 12:08:43 Radial Cocktail added 1 Dustin Dustin used for (Verapamil to syringe Lorigan Lorkiki procedure 2mg/Nitro field RN RN 400mcg/Heparin 1500units) 12:20:04 Radial Cocktail I.A. 1 Dustin Jeronimo for (Verapamil syringe Brianneigan Tauth MD vasodilation 2mg/Nitro RN 400mcg/Heparin 1500units) 12:20:29 Versed I.V. 2 mg Dustin Dustin for sedation Irina Arevalo RN RN 12:20:39 Fentanyl I.V. 100 mcg Dustin Dustin for sedation Irina Arevalo RN ironer machine Log Time Note 11:40:10 Hola Adams RN sent for patient. Start room use. 11:42:20 Signed procedure consent form obtained from patient. 11:42:22 Diagnostic Cath status Urgent 11:42:23 Time tracking: Regular hours (M-F 7:00 - 5:00) 11:42:27 Plan of Care:Hemodynamics will remain stable., Cardiac rhythm will remain stable., Comfort level will be maintained., Respiratory function will remain adequate., Patient/ family verbilizes understanding of procedure., Procedure tolerated without complication., Recovers from procedure without complications.. 11:44:18 Patient allergic to Penicillins 11:45:03 Lab Result : BUN 26 mg/dl 11:45:03 Lab Result : Creatinine 1.3 mg/dl 11:45:03 Lab Result : eGFR NONAFRICAN 58 ml/min 11:45:03 Lab Result : Hematocrit 47 % 11:45:03 Lab Result : Hemoglobin 16.5 g/dl 11:55:08 Patient received from ED to CCL 1 Alert and oriented. Tansferred to table in Supine position. 11:55:09 Warm blankets applied, and kike hugger turned on for patient comfort. 11:55:10 Correct patient and procedure confirmed by team. 11:55:11 ECG and BP/O2 sat monitors applied to patient. 12:02:58 Vital chart was started 12:04:46 Baseline sample Acquired. 12:04:51 Rhythm: sinus rhythm 12:04:55 Full Disclosure recording started 12:05:05 H&P Date Dictated: 10/08/2018 ER History on chart.. 12:05:06 Pre-procedure instructions explained to patient. 12:05:06 Pre-op teaching completed and patient verbalized understanding. 12:05:08 Family in waiting room. 12:05:09 Patient NPO since Midnight. 12:05:13 Is patient on blood thinner?No 12:05:16 Is the patient allergic to Iodine/contrast media? No. 12:05:18 Patient diabetic? Yes. 12:05:18 If diabetic: On Metformin? Yes 12:05:22 If on Metformin: Last Dose? 10/07/2018 12:05:25 Previous problem with sedation/anesthesia? No ? 12:05:26 Snore? Yes 12:05:27 Sleep apnea? No 12:05:28 Deviated septum? No 12:05:29 Opens mouth fully? Yes 12:05:30 Sticks out tongue? Yes 12:05:34 Airway obstruction? No ? 12:05:36 Dentures? No ? 12:05:38 Modified Armand's test Ulnar < 7 seconds 12:05:41 Patient pain scale 0/10 ?. 12:07:11 IV patent on arrival in left antecubital with 0.9% NaCl at O. 12:07:14 Lab results completed and on chart. 12:07:17 Right Radial & Right Groin area was prepped with chlora-prep and draped in sterile fashion 12:07:17 Alarms reviewed by R. N. 12:07:18 Sharps counted by scrub and verified by R.N. 12:07:20 Use device set Radial Dx or PCI 12:07:21 ACIST Syringe (56550) opened to sterile field. 12:07:23 Bag Decanter (2002S) opened to sterile field. 12:07:23 ACIST Hand Control (57922) opened to sterile field. 12:07:24 ACIST Manifold (09350) opened to sterile field. 12:07:24 Tegaderm 4 x 4 (1626W) opened to sterile field. 12:07:26 Medline Cath Pack ([id number]) opened to sterile field. 12:07:27 MBrace Wrist Support (099819829) opened to sterile field. 12:07:28 SHEATH 6FR Slender (1060) opened to sterile field. 12:07:29 EMERALD Guide Wire (230-284) opened to sterile field. 12:07:54 0.9% NaCl 100 ml/hr I.V. was administered by Dustin Arevalo RN; Per physician; 12:08:04 Oxygen 2 l/min etCO2 Nasal cannula was administered by Dustin Arevalo RN; for low 02 sats; 12:08:17 Heparin Flush Bag (1000units/500ml NS) 2 bags added to field was administered by Dustin Arevalo RN; used for procedure; 12:08:30 Lidocaine 2% 20ml vial added to field was administered by Dustin Arevalo RN; for local anesthetic; 12:08:43 Radial Cocktail (Verapamil 2mg/Nitro 400mcg/Heparin 1500units) 1 syringe added to field was administered by Dustin Arevalo RN; used for procedure; 12:15:21 --------ALL STOP TIME OUT------ 12:15:21 Final Timeout: patient, procedure, and site verified with staff and physician. All members of the team are in agreement. 12:15:23 Right Radial & Right Groin site verified by team. 12:15:27 Fire Safety Assessment: A--An alcohol-based skin anteseptic being used preoperatively., C--Open oxygen or nitrous oxide is being used., D--An ESU, laser, or fiber-optic light is being used. 12:15:29 Physical assessment completed. ASA score P 2 - A patient with mild systemic disease as per Jeronimo Alcazar MD. 12:15:50 3a) 45-59 Moderately reduced kidney function. 12:15:53 Maximum allowable contrast does (3.7 X eGFR X 0.75)161 ml. 12:15:56 Sedation plan: IV Moderate Sedation Medication:Versed, Fentanyl 12:16:36 Procedure started. 12:17:34 Zero performed for pressure channel P1 12:17:50 Local anesthetic to right radial artery with Lidocaine 2% by Jeronimo Alcazar MD.INITIAL ACCESS ONLY 12:18:47 A 6 Fr Short sheath was inserted into the Right Radial artery 12:19:11 A DIAGNOSTIC [place] 110cm 5 Fr catheter (136402) was advanced over the wire and used for Procedure. 12:20:04 Radial Cocktail (Verapamil 2mg/Nitro 400mcg/Heparin 1500units) 1 syringe I.A. was administered by Jeronimo Alcazar MD; for vasodilation; 12::29 Versed 2 mg I.V. was administered by Dustin Arevalo RN; for sedation; 12::36 LV gram done using HERNANDEZ 12::39 Fentanyl 100 mcg I.V. was administered by Dustin Arevalo RN; for sedation; 12::39 Injector settings: Ml/sec: 7, Volume: 15, 12:20:44 EF : 69 % 12:21:36 RCA angiography performed. 12:22:14 Catheter exchanged over wire. 12:22:28 GUIDE 6FR XBLAD 3.5 catheter ([id number]) opened to sterile field. 12:22:50 6 Fr XBLAD 3.5 guide catheter was inserted over the wire 12:24:00 LCA angiography performed. 12:24:08 Catheter removed. 12:24:51 Procedure ended.(Physican Out) 12:25:23 TR BAND Standard ([id number]) opened to sterile field. 12:25:31 Sheath removed intact; hemostasis achieved with Mechanical Compression to the Right Radial artery. 12:25:37 Fluoroscopy time 01.60 minutes. 12:25:41 Fluoroscopy dose: 764 mGy 12:25:41 Flurop Dose total: 764 12:25:43 Contrast amount:Isovue 300 71ml. 12:25:45 Sharps counted by scrub and verified by R.N. 12:25:47 TR band inflated with 10cc of air. 12:25:52 Post-procedure physical assessment completed. ASA score P 2 - A patient with mild systemic disease as per Jeronimo Alcazar MD. 12:25:55 Post procedure rhythm: sinus rhythm 12:25:57 Estimated blood loss: 10 ml 12:25:59 Post procedure instruction explained to patient.Patient verbalizes understanding. 12:25:59 Patient needs reinforcement of post procedure teaching. 12:26:54 Procedure and supply charges have been captured, reviewed, submitted and are correct. 12:26:57 Procedure Complication : No complications 12:26:59 Vital chart was stopped 12:27:00 See physician's report for complete and final results. 12:27:01 Report given to Pre/Post Procedure Room. 12:27:04 Patient transfered to Pre/Post Procedure Room with Bed. 12:27:07 Procedure ended. 12:27:07 Full Disclosure recording stopped 12:27:15 End room use (Document Last) Device Usage Item Name Manufacture Quantity Catalog Hospital Part Current Minimal Lot# / Number Charge Number Stock Stock Serial# Code ACIST Acist 1 68429 199740 492882 293761 20 Syringe Medical (70361) Systems Inc Bag Microtek 1 2001S 685396 49893 372572 5 Decanter Medical Inc. () ACIST Hand Acist 1 44337 399681 418597 641739 5 Control Medical (16891) Systems Inc ACIST Acist 1 02164 984528 769345 361545 5 Manifold Medical (13960) Systems Inc Tegaderm 4 3M 1 1626W 901568 933670 427640 5 x 4 (1626W) Medline Medline 1 [id number] 738125 49659 962075 5 Cath Pack ([id number]) MBrace Advanced 1 140-0250-00 723528 67577 024616 5 Wrist Vascular Support Dynamics ([id number]) SHEATH 6FR Terumo 1 [id number] 314479 124533 389983 5 Slender (80-1060) EMERALD Cardinal 1 502-455 952129 528677 648209 5 Guide Wire Health (502455) DIAGNOSTIC Terumo 1 40-8513 720351 193388 851125 5 [place] 110cm 5 Fr catheter (795628) GUIDE 6FR Cardinal 1 [id number] 102027 484992 624465 10 XBLAD 3.5 Health catheter (99819706) TR BAND Terumo 1 [id number] 460591 139552 535968 40 Standard ([id number]) Signature Audit Dailey Stage Time Signature Unsigned Intra-Procedure 10/08/2018 Dorita Blake 12:30:08 PM RT(R) Signatures Monitor : Dorita Blake Signature : RT Date : Time : [address] [place] [address]
--- NOTE | ~2018-10-08 | DS ---
PATIENT:ANGELIC CROUCH :52 MEDICAL RECORD: [id number] DISCHARGE SUMMARY ADMISSION DATE: 10/08/18 DISCHARGE DATE: 10/08/18 DATE OF DISCHARGE: 10/08/2018 DIAGNOSES: 1. Supraventricular tachycardia. 2. Angina. 3. Coronary artery disease. 4. Previous percutaneous transluminal coronary angioplasty stent. 5. Hypertension. 6. Hyperlipidemia. HOSPITAL COURSE: Mr. Crouch presents with SVT and angina. He received adenosine. This broke the SVT. Cardiac catheterization revealed no new coronary artery disease. Discharged home. Continue his metoprolol. Follow up with [facility] as previously scheduled. Follow up sooner if he has recurrent episodes of the SVT. TRANSINT:[id number] Voice Confirmation ID: [id number] DOCUMENT ID: [id number] LEN LEBRON MD CC: [id number] DICTATION DATE: 10/08/18 1230 PEDIATRIC CLINICAL NURSE SPECIALIST: 10/09/18 0054 DEP CLI 10/08/18 [address] [place] [address]
[~2018-10-08 07:02] MED LIST changes: +LISINOPRIL2.5 MG PO; +TOPROL XL50 MG
[2018-10-08 07:57] LABS: BASOPHILS 0.3 % (0-2); EOSINOPHILS 3.2 % (0-7); HEMOGLOBIN 16.5 g/dL (13.5-17.5); IMMATURE GRANULOCYTES 0.3 % (0-5); MCH 28.8 pg (26.0-34.0); MCHC 35.1 g/dL (31.0-37.0); MEAN PLATELET VOLUME 9.4 fL (7.4-10.4); MONOCYTES 9.8 % (2-11); NEUTROPHILS 66.4 % (40-80); PLATELET COUNT 189 10x3/uL (130-400); RBC 5.73 10x6/uL (4.20-6.10); RDW 13.7 % (11.5-14.5); WBC 11.8 10x3/uL (4.8-10.8)
[2018-10-08 08:11] LABS: ALBUMIN 3.8 g/dL (3.4-5.0); ALKALINE PHOSPHATASE 94 U/L (46-116); ALT (SGPT) 35 U/L (10-68); BILIRUBIN - TOTAL 0.85 mg/dL (0.2-1.3); CALC OSMOLALITY 284 mosm/kg (275-300); CALCIUM 9.1 mg/dL (8.5-10.1); CARBON DIOXIDE 21.5 mmol/L (21.0-32.0); CHLORIDE - SERUM 103 mmol/L (98-107); CREATININE - SERUM 1.3 mg/dL (0.6-1.3); POTASSIUM - SERUM 5.5 mmol/L (3.5-5.1); PROTEIN - SERUM 6.7 g/dL (6.4-8.2); SODIUM 136 mmol/L (136-145); UREA NITROGEN 26 mg/dL (7-18); eGFR NON AFRICAN AMERICAN 58 mL/min (90-120)
[2018-10-08 08:12] LABS: GLUCOSE 242 mg/dL (74-106)
[2018-10-08 08:20] LABS: MAGNESIUM - SERUM 1.6 mg/dL (1.8-2.4); PRO BNP 655 pg/mL (0-125); THYROID STIMULATING HORMONE 3.85 uIU/mL (0.36-3.74)
[2018-10-08 08:21] LABS: TROPONIN-I < 0.017 ng/mL (0.000-0.060)
[2018-10-08 08:36] LABS: INR 1.1 (0.85-1.17); PROTIME 13.7 SECONDS (11.6-15.0)
[2018-10-08 12:25] VITALS: BP 116/74
--- NOTE | 2018-10-08 12:28 | HP ---
PATIENT: ANGELIC CROUCH MEDICAL RECORD: [id number] ACCOUNT: [id number] LOCATION:[place] : 52 ADMISSION DATE: 10/08/18 PCP: IRMA CUEVA MD HISTORY AND PHYSICAL EXAMINATION ADMITTING DIAGNOSES: 1. Unstable angina. 2. Coronary artery disease. 3. Previous percutaneous transluminal coronary angioplasty stent, last being 1 year ago. 4. Supraventricular tachycardia. 5. Hypotension. 6. Hyperlipidemia. 7. History of hypertension. 8. Noninsulin-dependent diabetes. HISTORY OF PRESENT ILLNESS: Mr. Crouch began having chest discomfort, diaphoresis, and palpitations this morning at approximately 1 o'clock. He stayed at home, with this took a metoprolol. His systolic blood pressure was in the 70s with this and heart rate was in the 160s. He does have a history of supraventricular tachycardia, usually vagal maneuvers or the metoprolol will convert him. His chest pressure got worse as he broke out in a cold sweat, became very diaphoretic approximately 6:00 a.m. that time, he called EMS. He arrives to the Emergency Room in a supraventricular tachycardia with heart rates in the 160s. He was initially given 6 mg of adenosine followed by 12 mg of adenosine. This broke the supraventricular tachycardia down to a sinus rhythm. He had nonspecific ST-T abnormalities laterally. He continues to have a nonspecific ST-T abnormalities laterally. His diaphoresis has gone. He is still having some chest pressure with this and this is just like his previous angina. PHYSICAL EXAMINATION: GENERAL APPEARANCE: Well-nourished, well-developed, appears stated age. Level of distress, comfortable. PSYCHIATRIC: Mental status, alert, normal affect. Orientation, oriented to time, place and person. EYES: Lids and conjunctiva, noninjected. No discharge, no pallor. ENT: Lips, teeth, gums, normal dentition. Oropharynx, no cyanosis, no pallor. NECK: Carotid arteries, bilateral normal upstroke, no bruits, no thrills. JUGULAR VEINS: No jugular venous pressure or distention. CERVICAL LYMPH NODES: Nontender, nonenlarged. THYROID: Not enlarged. Nontender. No nodules. LUNGS: Respiratory effort, unlabored. CHEST: Normal curvature. No thoracic deformity. No chest wall tenderness. Percussion, resonant. Auscultation, clear. No wheezes, no rales, no rhonchi. CARDIOVASCULAR: Precordial exam, nondisplaced. No heaves or pericardial thrills. Rate and rhythm, regular. Heart sounds, normal S1, normal S2. No S3, no gallop, no rub. Systolic murmur, not heard. Diastolic murmur, not heard. EXTREMITIES: No cyanosis, no edema. Peripheral pulses, full and equal in all extremities, except as noted. No bruits appreciated. ABDOMEN: Soft, nondistended. Normal aorta. No bruit. Nontender. No masses. Liver, nontender, no hepatomegaly. Spleen, nontender, no splenomegaly. MUSCULOSKELETAL: No joint tenderness. No joint swelling. No erythema. NEUROLOGICAL: Normal gait, normal strength, normal tone. SKIN: Warm and dry. HISTORY AND PHYSICAL [id number] ANGELIC CROUCH OVERALL IMPRESSION: Unstable angina with supraventricular tachycardia, hypotension, chest pressure. We will proceed with coronary angiography. Further care depends upon findings of the angiography. He has had aspirin in the last 24 hours. He as well has a family history of premature coronary artery disease, hyperlipidemia, yia-bkndoal-tothbykxk diabetes, and hypertension. Most likely he does have recurrent hemodynamically significant coronary artery disease. TRANSINT:[id number] Voice Confirmation ID: [id number] DOCUMENT ID: [id number] LEN LEBRON MD at 1228 CC: [id number] DICTATION DATE: 10/08/18 0804 ENERGY CONSULTANT: 10/08/18 0843 [facility] [address] [place] [address]
--- NOTE | 2018-10-08 12:55 | NUR ---
2L NC, NO RESP DISTRESS. RIGHT WRIST TR BAND CDI, NO BLEEDING OR HEMATOMA NOTED. NO C/O PAIN OR NAUSEA. VSS. FAMILY AT BEDSIDE, CALL LIGHT WITHIN REACH.
[2018-10-08 13:30] LABS: APPEARANCE TURBID (CLEAR); BILIRUBIN NEGATIVE (NEGATIVE); COLOR RED (YELLOW); GLUCOSE NEGATIVE (NEGATIVE); KETONE NEGATIVE (NEGATIVE); NITRITE NEGATIVE (NEGATIVE); PROTEIN 1+ mg/dL (NEGATIVE); UROBILINOGEN NORMAL (NORMAL)
--- NOTE | 2018-10-08 13:30 | NUR ---
3CC OF AIR REMOVED FROM TR BAND WITH NO BLEEDING NOTED. SIPPING ON DRINK AND EATING SANDWICH WITH NO C/O NAUSEA. VSS. WILL CONTINUE TO MONITOR.
[2018-10-08 13:35] LABS: BACTERIA NONE SEEN /hpf (NONE SEEN); EPITHELIAL CELLS NSEEN /hpf (0-5); RED CELLS - URINE >50 /hpf (0-5); WHITE CELLS - URINE 0-5 /hpf (0-5)
--- NOTE | 2018-10-08 13:50 | NUR ---
3CC OF AIR REMOVED FROM TR BAND WITH NO BLEEDING NOTED.
--- NOTE | 2018-10-08 14:00 | NUR ---
CHARLES CALLED INTO [facility] PER DR. LEBRON.
--- NOTE | 2018-10-08 14:15 | NUR ---
LEFT FA PIV AND RIGHT HAND PIV D/C'D WITH CATHETER INTACT, BAND AID TO SITE. UP TO BEDSIDE TO GET DRESSED.
--- NOTE | 2018-10-08 14:25 | NUR ---
REMAINING AIR REMOVED FROM TR BAND WITH NO BLEEDING NOTED. DRESSING PLACED TO SITE. DISCHARGE INSTRUCTIONS GIVEN, VERBALIZED UNDERSTANDING.
--- NOTE | 2018-10-08 14:40 | NUR ---
TAKEN OUT VIA WHEELCHAIR BY CATH SUPERVISORY FORESTER. LEFT FACILITY WITH FAMILY AND ALL PERSONAL BELONGINGS.
== END 2018-10-08 14:40 | disposition home or self-care (01) ==
LOC: D.CATH 07:02 → D.ER 07:02 → D.CATH 14:40 → EDSTATUS 14:50
PROVIDERS: Internal Medicine Interventional Cardiology; ATTEND Family Medicine
DX: I25.110 Atherosclerotic heart disease of native coronary artery with unstable angina pectoris (principal); I47.1 Supraventricular tachycardia

== ENCOUNTER 2018-10-11 05:44 | Emergency (ER) | payer MEDICARE, OTHER ==
[~2018-10-11] VITALS: Ht 181.6 cm; Wt 95.5 kg
[2018-10-11 05:46] VITALS: Ht 181.6 cm; Wt 95.5 kg
[2018-10-11] MEDS ORDERED: LIPITOR40 MG PO (05:47)
[2018-10-11] MEDS ORDERED: BYDUREON P2 MG/0.65 SC (05:48)
[2018-10-11] MEDS ORDERED: LISINOPRIL10 MG PO (05:48)
[2018-10-11 06:12] LABS: BASOPHILS 0.3 % (0-2); EOSINOPHILS 4.7 % (0-7); HEMOGLOBIN 15.8 g/dL (13.5-17.5); IMMATURE GRANULOCYTES 0.3 % (0-5); MCH 28.9 pg (26.0-34.0); MCHC 35.1 g/dL (31.0-37.0); MCV 82.3 fL (80.0-100.0); MEAN PLATELET VOLUME 8.8 fL (7.4-10.4); MONOCYTES 9.9 % (2-11); NEUTROPHILS 65.8 % (40-80); RBC 5.47 10x6/uL (4.20-6.10); RDW 13.7 % (11.5-14.5); WBC 7.9 10x3/uL (4.8-10.8)
[2018-10-11 06:26] LABS: ALBUMIN 3.5 g/dL (3.4-5.0); ALKALINE PHOSPHATASE 87 U/L (46-116); ALT (SGPT) 37 U/L (10-68); CALC OSMOLALITY 283 mosm/kg (275-300); CALCIUM 8.6 mg/dL (8.5-10.1); CARBON DIOXIDE 23.1 mmol/L (21.0-32.0); CHLORIDE - SERUM 105 mmol/L (98-107); CREATININE - SERUM 1.1 mg/dL (0.6-1.3); POTASSIUM - SERUM 4.5 mmol/L (3.5-5.1); PROTEIN - SERUM 6.7 g/dL (6.4-8.2); SODIUM 140 mmol/L (136-145); UREA NITROGEN 14 mg/dL (7-18); eGFR NON AFRICAN AMERICAN 71 mL/min (90-120)
[2018-10-11 06:27] LABS: GLUCOSE 176 mg/dL (74-106)
[2018-10-11] MEDS ORDERED: VERELAN120 MG PO (06:41)
[2018-10-11 06:42] LABS: CKMB 0.7 U/L (0.0-3.6); CREATINE KINASE 56 UL (21-232); MAGNESIUM - SERUM 1.6 mg/dL (1.8-2.4)
[2018-10-11 06:45] LABS: TROPONIN-I 0.122 ng/mL (0.000-0.060)
[2018-10-11 06:50] LABS: APTT 25.2 SECONDS (22.8-39.4); INR 1.08 (0.85-1.17); PROTIME 13.5 SECONDS (11.6-15.0)
[2018-10-11 06:51] LABS: PLATELET COUNT 146 10x3/uL (130-400)
[2018-10-11 06:59] VITALS: BP 108/77
== END 2018-10-11 07:01 | disposition home or self-care (01) ==
LOC: D.ER 05:44
PROVIDERS: Emergency Medicine
DX: I47.1 Supraventricular tachycardia (principal); E11.9 Type 2 diabetes mellitus without complications; I10 Essential (primary) hypertension; I25.10 Atherosclerotic heart disease of native coronary artery without angina pectoris

== ENCOUNTER → 2018-11-06 12:37 | Outpatient (CLI) | payer MEDICARE, OTHER ==
[2018-10-11 05:46] VITALS: BMI 28.9
--- NOTE | ~2018-11-06 | EC ---
PATIENT:ANGELIC COULTER DATE OF SERVICE: 11/06/18 SEX: M MEDICAL RECORD: [id number] DATE OF : 52 LOCATION:D[facility] AGE OF PATIENT: 68 ADMISSION DATE: 11/06/18 REFERRING PHYSICIAN: INTERPRETING PHYSICIAN: LEN ALCAZAR MD ECHOCARDIOGRAM REPORT ECHO CHARGES 4 ECHO COMPLETE Date: 11/06/18 CLINICAL DIAGNOSIS: SVT H/O CAD/HTN ECHOCARDIOGRAPHIC MEASUREMENTS (adult normal given) AC root (d.<3.7cm) 3.9 cm LV Septum d (<1.2 cm> 1.7 cm Valve Excursion 2.3 cm LV Septum (systole) 2.5 cm Left Atria (s.<4.0cm> 4.2 cm LVPW d(<1.2cm) 1.7 cm RV (d.<2.3cm) 3.1 cm LVPW (sytole) 2.1 cm LV diastole(<5.6CM) 3.6 cm MV E-F(>70mm/sec) cm LV systole 2.1 cm LVOT Diameter 2.0 cm MV exc.(>10mm) cm Est.ejection fraction (50-75%) % DOPPLER: LVIT cm/sec A 50.0 cm/sec E 25.0 cm/sec LA cm/sec RVSP mmHg LVOT 81.0 cm/sec AOP1/2T m/s Asc. Ao 77.0 cm/sec RVOT 34.0 cm/sec RA cm/sec PA 86.0 cm/sec AV Gradient Peak 2.4 mmHg AV Mean 1.3 mmHg AV Area 4.0 cm MV Gradient Peak 1.3 mmHg MV Mean 0.43 mmHg MV Area cm COMMENTS: OP - HC Hotbed Operator: Arleen SNOW GILMAN Pluck Separator: 1 Dr. Alcazar TAPE# PACS Pericardial Effusion N DATE OF SERVICE: 11/06/2018 PROCEDURE: Echocardiogram. FINDINGS: 1. Left ventricular chamber size is within normal limits. Left ventricular systolic function is normal. Overall ejection fraction estimated at 50%. 2. Left atrium is enlarged at 4.2 cm. Right atrium and right ventricular chamber sizes are within normal limits. 3. Valvular structures have normal structure and motion. ECHOCARDIOGRAM REPORT [id number] ANGELIC COULTER 4. Doppler interrogation reveals no significant valvular insufficiency or stenosis. 5. No evidence of pericardial effusion or left ventricular thrombus. TRANSINT:[id number] Voice Confirmation ID: [id number] DOCUMENT ID: [id number] LEN ALCAZAR MD CC: [id number] DICTATION DATE: 11/07/18 132 TRUCK BODY REPAIRER: 11/07/18 1329 DEP CLI 11/06/18 [address] [place] [id number]
[~2018-11-06 12:37] MED LIST changes: +BYDUREON P2 MG/0.65 SC; +LISINOPRIL10 MG PO; +VERELAN120 MG PO
== END | disposition home or self-care (01) ==
LOC: D.HCCARDIO 12:30
PROVIDERS: ATTEND Internal Medicine Interventional Cardiology
DX: I25.10 Atherosclerotic heart disease of native coronary artery without angina pectoris (principal); I10 Essential (primary) hypertension